=== PATIENT | female | born 1940 | race Caucasian/White ===

== ENCOUNTER 2022-08-24 23:40 | Observation (INO) | payer BC, SELFPAY ==
--- NOTE | ~2022-08-24 | MR_ITS ---
EXAMINATION: MRI OF THE BRAIN WITHOUT CONTRAST CLINICAL INFORMATION: CVA. COMPARISON: CTA of the head and neck earlier 08/25/2022. TECHNIQUE: MRI of the brain was obtained using routine sequences without contrast. FINDINGS: No diffusion abnormalities are identified to suggest an acute or subacute infarct. No mass effect or midline shift is seen. The ventricles and sulci are slightly commensurately prominent, consistent with diffuse volume loss. There are a few scattered foci of hyperintense T2 and FLAIR signal in the periventricular and subcortical white matter, most consistent with chronic microvascular ischemic changes. There appears to be a small area of gliosis in the left temporo-occipital region. There is a prominent perivascular space in the right temporal lobe. No extra-axial fluid collections are seen. The brainstem and cerebellum are normal. No pathologic magnetic susceptibility artifact is identified on the gradient refocused acquisition. The craniovertebral junction, marrow signal, and midline structures are normal. The major intracranial flow-voids at the level of the [place] are preserved. The dural venous sinus flow-voids are maintained. There is relatively extensive accessory parotid tissue bilaterally, right greater than left. 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 There have been bilateral lens extractions. There is trace fluid at the left mastoid tip. There is mild mucoperiosteal thickening in the ethmoid sinuses bilaterally. MR/MR head/brain wo con IMPRESSION: 1. There are no acute bleeds or territorial infarcts. No masses are demonstrated. 2. There are chronic microvascular ischemic changes and there is diffuse volume loss.
--- NOTE | ~2022-08-24 | CT_ITS ---
EXAMINATION: CTA OF THE HEAD/NECK CLINICAL INFORMATION: Left arm weakness COMPARISON: None. TECHNIQUE: A routine non contrast head CT was performed followed by a 70 mL bolus of Omnipaque 350. Subsequent multidetector helical imaging was performed of the head and neck. Delayed post contrast imaging was also performed through the head. Multiplanar reformats and MIP were also obtained. Internal carotid artery stenoses are assessed in accordance with NASCET criteria unless otherwise indicated. This CT examination was performed using dose optimization techniques as appropriate, variously including the following: *Automated exposure control *Adjustment of mA and/or kV according to patient size (this includes techniques or standardized protocols for targeted exams where dose is matched to indication/reason for exam; i.e. extremities or head) *Use of iterative reconstruction technique DLP: 2261 mGy-cm. FINDINGS: CT HEAD: There is no evidence of acute intracranial hemorrhage or territorial infarction. No abnormal mass effect or midline shift is seen. Avelar to white matter differentiation is well preserved. No extra-axial fluid collections are identified. No suspicious leptomeningeal or parenchymal enhancement on the post-contrast images. No hydrocephalus. Proportional prominence of the ventricles and sulcal spaces is consistent with mild volume loss. Patchy periventricular and deep white matter hypoattenuation is consistent with mild small vessel ischemic changes. The osseous structures and soft tissues are normal. The mastoid air cells and visualized portions of the paranasal sinuses are well aerated. CTA NECK: The aortic arch is of normal caliber and the origins of the great vessels are patent without evidence of significant stenosis. The cervical portion of the vertebral arteries are patent bilaterally. No luminal irregularities in the common carotid arteries and the carotid bifurcations are patent bilaterally. The cervical portion of the internal carotid arteries are of normal caliber. The laryngeal structures and pharyngeal mucosal spaces are unremarkable. The oral cavity appears normal. The parotid and submandibular glands are normal. No pathologically enlarged lymph nodes. The thyroid gland is unremarkable. Mild pleural thickening at the lung apices with calcification. No pneumothorax. Spinal alignment is maintained. Mild cervical spondylosis is noted. CTA HEAD: The intradural portion of the vertebral arteries are of normal caliber. The basilar, superior cerebellar, and posterior communicating arteries are patent. The posterior, middle, and anterior cerebral arteries are of normal caliber without evidence of significant luminal irregularity. No definite intracranial aneurysms. CT/CT angio head neck IMPRESSION: 1. No acute intracranial finding. 2. No large vessel occlusion or flow-limiting stenosis.
[2022-08-24 23:41] VITALS: BP 200/71; PULSE 84; RESP 18; TEMP 36.4; O2SAT 98; BMI 32.3
--- NOTE | 2022-08-24 23:46 | ECG_ITS ---
Test Reason : ?STROKE Blood Pressure : / mmHG Vent. Rate : 078 BPM Atrial Rate : 078 BPM P-R Int : 204 ms QRS Dur : 088 ms QT Int : 356 ms P-R-T Axes : 060 -03 068 degrees QTc Int : 405 ms Normal sinus rhythm Normal ECG No previous ECGs available Referred By: Generic ED Physician Electronically Signed By:Oswaldo Reynoso
[2022-08-25 00:09] VITALS: BP 176/82; PULSE 74; RESP 18; TEMP 36.9; O2SAT 96
[2022-08-25 00:15] LABS: MANUAL DIFF FLAG NO
[2022-08-25 00:17] LABS: Basophils Absolute Auto 0.1 X10*3/uL (0.0-0.2); Basophils Percent Auto 0.8 % (0-2); Eosinophils Absolute Auto 0.2 X10*3/uL (0.0-0.4); Eosinophils Percent Auto 2.4 % (0-4); Hematocrit 35.4 % (37.0-47.0); Hemoglobin 11.3 g/dl (12.0-16.0); Imm Gran Abs Auto 0.02 X10*3/uL (0.00-0.03); Imm Gran Pct Auto 0.3 % (0.0-0.4); Lymphocytes Absolute Auto 3.1 X10*3/uL (1.2-4.9); Lymphocytes Percent Auto 39.3 % (20-40); Mean Corpuscular HGB Conc 31.9 g/dl (31.0-35.0); Mean Platelet Volume 8.8 fL (9.4-12.3); Monocytes Absolute Auto 0.7 X10*3/uL (0.1-1.2); Monocytes Percent Auto 8.2 % (2-11); Neutrophils Absolute Auto 3.9 x10*3/uL (2.0-8.3); Platelet Count 269 X10*3/uL (160-400); Red Blood Count 3.89 X10*6/uL (4.20-5.50); Red Cell Distribution Width 13.2 % (11.0-16.0); White Blood Count 7.9 X10*3/uL (4.8-10.8)
--- NOTE | 2022-08-25 00:21 | ED.GENADULT ---
HPI - General Adult General Chief complaint: Weakness Stated complaint: Transient Ischemic Attack? Time Seen by Provider: 08/25/22 00:01 Source: patient and RN notes reviewed Mode of arrival: ambulatory Limitations: no limitations History of Present Illness HPI narrative: 82-year-old female with past medical history significant for diabetes, hypertension presents for evaluation of left arm weakness. She states that she was watching TV around 10:15 p.m. about 2 hours prior to arrival She reported that her left arm felt ?heavy with some numbness. 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 This episode lasted about 5 minutes before resolving completely on its own She denies any associated symptoms including headache, dizziness, blurry vision, difficulty speaking, chest pain, shortness of breath Patient denies any previous episodes of similar symptoms Related Data Home Medications Medication Instructions Recorded Confirmed Claritin 10 mg PO allergies 08/25/22 Vitamin D (with calcium) PO 08/25/22 atorvastatin 10 mg tablet 5 mg PO DAILY 08/25/22 08/25/22 insulin glargine 100 unit/mL (3 35 unit subcut DAILY 08/25/22 08/25/22 mL) subcutaneous pen (Basaglar KwikPen U-100 Insulin) lisinopril 10 mg tablet 10 mg PO DAILY 08/25/22 08/25/22 vitamin B complex PO 08/25/22 Allergies Allergy/AdvReac Type Severity Reaction Status Date / Time No Known Allergies Allergy Verified 08/25/22 00:13 Review of Systems Constitutional: Constitutional: Reports as per HPI, Denies chills, Denies fatigue, Denies fever(s) and Denies headache(s) ENT: Denies headache(s) Cardiovascular: Cardiovascular: Denies chest pain and Denies dyspnea Respiratory: Respiratory: Denies cough and Denies dyspnea Gastrointestinal: Gastrointestinal: Denies abdominal pain, Denies constipation and Denies vomiting Genitourinary: Genitourinary: Denies dysuria Neurologic: Denies headache(s) and Reports focal weakness Endocrine: Endocrine: Denies fatigue PMFSH Social History Social History Alcohol intake: never Smoked in Last 30 Days: No Use of substances other than those prescribed or required for medical reasons: No Advance Directives: No Advance Directives Information Provided: Yes Physical Exam ED Vital Signs: Vital Signs - 24 hr 08/24/22 23:41 08/25/22 00:09 08/25/22 01:38 Temperature 97.5 F 98.4 F Pulse Rate 84 74 77 Respiratory Rate 18 18 20 Blood Pressure 200/71 H 176/82 H 150/69 H Pulse Oximetry 98 96 96 Oxygen Delivery Method Room Air Room Air Room Air BMI result Body Mass Index 32.3 Const General: healthy appearing, comfortable, no acute distress, alert and awake Nutritional Appearance: well nourished Orientation/consciousness: patient oriented x3 HENMT Head: Yes normocephalic and Yes atraumatic Throat: Yes posterior oropharynx normal Eyes Eyelids: Yes eyelids normal Conjunctivae: conjunctivae normal Sclerae: sclerae normal Corneas: corneas normal Pupils: Equal, round and reactive pupils present EOM: EOMs intact bilaterally Neck Neck: Yes full ROM Resp Effort & Inspection: normal respiratory effort, able to speak in complete sentences, no audible wheezes and not labored Auscultation: clear to auscultation bilaterally Cardio Rate: regular rate Rhythm: regular rhythm GI Inspection: No distended Palpation (GI): Soft to palpation, not firm, nontender, no guarding and not rigid Auscultation: normoactive bowel sounds Skin General skin exam: no rashes or lesions noted and elasticity normal Neuro General: patient oriented x3 Cranial nerves: Yes CN's II-XII intact bilaterally, Yes Equal, round and reactive pupils present and Yes Bilaterally intact EOM present Cognition (Neuro): normal cognition Motor exam (neuro): 5/5 motor strength present throughout, pronator drift and No no tremor noted Extrem Other: Moving all extremities well without any obvious deformities Medications Administered Discontinued Medications Generic Name Dose Route Start Last Admin Trade Name Freq PRN Reason Stop Dose Admin Iohexol 70 ml 08/25/22 01:48 08/25/22 01:49 Iohexol 350 Mg/Ml 100 Ml Infus..Btl IV 08/25/22 01:49 70 ml ONCE ONE Administration Medical Decision Making Medical Decision Making MDM Narrative: 82-year-old female who currently has an NIH stroke score of 0 presents for evaluation of left arm heaviness and weakness that last about 5 minutes. Concern for TIA versus atypical ACS presentation. Will get a CT scan of brain with angiography. EKG is normal sinus rhythm without evidence of ischemia. Labs pending. Will hold any aspirin until released have dry CT scan of the brain to rule out any kind of bleed. The patient is quite hypertensive to the 200/71 on arrival. However we will refrain from any antihypertensive medication long as the patient remains neurologically intact and again pending CT scan. Differential Diagnosis TIA Intracranial hemorrhage CVA ACS Weakness Anxiety Hypertensive urgency Lab Data 08/25/22 00:09 08/25/22 00:09 Labs: Lab Results 08/25/22 08/25/22 08/25/22 Range/Units 00:09 00:09 00:09 WBC 7.9 (4.8-10.8) X10*3/uL RBC 3.89 L (4.20-5.50) X10*6/uL Hgb 11.3 L (12.0-16.0) g/dl Hct 35.4 L (37.0-47.0) % MCV 91.0 (80.0-98.0) fL MCH 29.0 (27.0-33.0) pg MCHC 31.9 (31.0-35.0) g/dl RDW 13.2 (11.0-16.0) % Plt Count 269 (160-400) X10*3/uL MPV 8.8 L (9.4-12.3) fL Immature Gran % (Auto) 0.3 (0.0-0.4) % Neut % (Auto) 49.0 (45-73) % Lymph % (Auto) 39.3 (20-40) % [place] % (Auto) 8.2 (2-11) % Eos % (Auto) 2.4 (0-4) % Baso % (Auto) 0.8 (0-2) % Lymph # (Auto) 3.1 (1.2-4.9) X10*3/uL [place] # (Auto) 0.7 (0.1-1.2) X10*3/uL Eos # (Auto) 0.2 (0.0-0.4) X10*3/uL Baso # (Auto) 0.1 (0.0-0.2) X10*3/uL Abs Immat Gran (auto) 0.02 (0.00-0.03) X10*3/uL Absolute Neuts (auto) 3.9 (2.0-8.3) x10*3/uL Absolute Nucleated RBC 0.000 (0.0-0.012) X10*3/uL Nucleated RBC % (auto) 0.0 (0.0-0.2) /100WBC PT 10.1 (10.0-13.1) SEC Whole Blood PT (11.1-13.5) sec INR 0.9 (0.9-1.1) Whole Blood INR (0.9-1.1) APTT 34.1 (26.0-36.4) SEC Sodium 138 (135-145) mmol/L Potassium 4.4 (3.3-5.1) mmol/L Chloride 103 (96-108) mmol/L Carbon Dioxide 27 (22-29) mmol/L Anion Gap 12 (12-20) BUN 23 H (9-16) mg/dL Creatinine 1.50 H (0.5-1.4) mg/dL Estim Creat Clear Calc 32.2 Estimated GFR 33 POC Glucose (60-115) mg/dL Random Glucose 205 H (60-115) mg/dL Calcium 9.8 (8.4-10.2) mg/dL Total Creatine Kinase 74 (26-140) U/L Troponin I High Sens (<3.5-17.0) ng/L COVID-19 ([facility]) (Negative) COVID-19 Clin Com 08/25/22 08/25/22 08/25/22 Range/Units 00:09 00:17 00:17 WBC (4.8-10.8) X10*3/uL RBC (4.20-5.50) X10*6/uL Hgb (12.0-16.0) g/dl Hct (37.0-47.0) % MCV (80.0-98.0) fL MCH (27.0-33.0) pg MCHC (31.0-35.0) g/dl RDW (11.0-16.0) % Plt Count (160-400) X10*3/uL MPV (9.4-12.3) fL Immature Gran % (Auto) (0.0-0.4) % Neut % (Auto) (45-73) % Lymph % (Auto) (20-40) % [place] % (Auto) (2-11) % Eos % (Auto) (0-4) % Baso % (Auto) (0-2) % Lymph # (Auto) (1.2-4.9) X10*3/uL [place] # (Auto) (0.1-1.2) X10*3/uL Eos # (Auto) (0.0-0.4) X10*3/uL Baso # (Auto) (0.0-0.2) X10*3/uL Abs Immat Gran (auto) (0.00-0.03) X10*3/uL Absolute Neuts (auto) (2.0-8.3) x10*3/uL Absolute Nucleated RBC (0.0-0.012) X10*3/uL Nucleated RBC % (auto) (0.0-0.2) /100WBC PT (10.0-13.1) SEC Whole Blood PT 11.5 (11.1-13.5) sec INR (0.9-1.1) Whole Blood INR 1.0 (0.9-1.1) APTT (26.0-36.4) SEC Sodium (135-145) mmol/L Potassium (3.3-5.1) mmol/L Chloride (96-108) mmol/L Carbon Dioxide (22-29) mmol/L Anion Gap (12-20) BUN (9-16) mg/dL Creatinine (0.5-1.4) mg/dL Estim Creat Clear Calc Estimated GFR POC Glucose 194 H (60-115) mg/dL Random Glucose (60-115) mg/dL Calcium (8.4-10.2) mg/dL Total Creatine Kinase (26-140) U/L Troponin I High Sens < 2.7 (<3.5-17.0) ng/L COVID-19 ([facility]) (Negative) COVID-19 Clin Com 08/25/22 Range/Units 01:18 WBC (4.8-10.8) X10*3/uL RBC (4.20-5.50) X10*6/uL Hgb (12.0-16.0) g/dl Hct (37.0-47.0) % MCV (80.0-98.0) fL MCH (27.0-33.0) pg MCHC (31.0-35.0) g/dl RDW (11.0-16.0) % Plt Count (160-400) X10*3/uL MPV (9.4-12.3) fL Immature Gran % (Auto) (0.0-0.4) % Neut % (Auto) (45-73) % Lymph % (Auto) (20-40) % [place] % (Auto) (2-11) % Eos % (Auto) (0-4) % Baso % (Auto) (0-2) % Lymph # (Auto) (1.2-4.9) X10*3/uL [place] # (Auto) (0.1-1.2) X10*3/uL Eos # (Auto) (0.0-0.4) X10*3/uL Baso # (Auto) (0.0-0.2) X10*3/uL Abs Immat Gran (auto) (0.00-0.03) X10*3/uL Absolute Neuts (auto) (2.0-8.3) x10*3/uL Absolute Nucleated RBC (0.0-0.012) X10*3/uL Nucleated RBC % (auto) (0.0-0.2) /100WBC PT (10.0-13.1) SEC Whole Blood PT (11.1-13.5) sec INR (0.9-1.1) Whole Blood INR (0.9-1.1) APTT (26.0-36.4) SEC Sodium (135-145) mmol/L Potassium (3.3-5.1) mmol/L Chloride (96-108) mmol/L Carbon Dioxide (22-29) mmol/L Anion Gap (12-20) BUN (9-16) mg/dL Creatinine (0.5-1.4) mg/dL Estim Creat Clear Calc Estimated GFR POC Glucose (60-115) mg/dL Random Glucose (60-115) mg/dL Calcium (8.4-10.2) mg/dL Total Creatine Kinase (26-140) U/L Troponin I High Sens (<3.5-17.0) ng/L COVID-19 ([facility]) Negative (Negative) COVID-19 Clin Com See Note Independent Interpretation I performed an independent interpretation of an: EKG (Sinus rhythm with a rate of 78 beats per minute. No ischemic changes) Discharge Plan Discharge Clinical Impression: Brain TIA Patient Disposition: Admitted As Inpatient Prescriptions: No Action atorvastatin 10 mg tablet 5 mg PO DAILY lisinopril 10 mg tablet 10 mg PO DAILY insulin glargine [Basaglar KwikPen U-100 Insulin] 100 unit/mL (3 mL) insulin pen 35 unit subcut DAILY Claritin 10 mg 10 mg PO Vitamin D (with calcium) PO vitamin B complex PO
[2022-08-25 00:23] LABS: INTERNATIONAL NORM RATIO 0.9 (0.9-1.1); Prothrombin Time 10.1 SEC (10.0-13.1)
[2022-08-25 00:26] LABS: Partial Thromboplastin Time 34.1 SEC (26.0-36.4)
[2022-08-25 00:30] LABS: Anion Gap 12 (12-20); Blood Urea Nitrogen 23 mg/dL (9-16); Calcium 9.8 mg/dL (8.4-10.2); Carbon Dioxide 27 mmol/L (22-29); Chloride 103 mmol/L (96-108); Creatinine Clr Calc Pharmacy 32.2; Estimated Glomerular Filt Rate 33; Glucose Random 205 mg/dL (60-115); Potassium 4.4 mmol/L (3.3-5.1); Sodium 138 mmol/L (135-145)
[2022-08-25 00:32] LABS: Prothrombin Time Whole Bld POC 11.5 sec (11.1-13.5)
[2022-08-25 00:34] LABS: Stroke Lab Use COMPLETE
--- NOTE | 2022-08-25 00:34 | PC.NURSE ---
Pt A&Ox4, ambulated from WR to room with steady gait, reports she was watching TV at approximately 2215 last night when all of the sudden she felt left arm heaviness lasting less then 5 mins, now resolved. Pt denies SOB, CP. Pt able to move all extremities equally, no am drift noted, symmetrical smile. IV line placed, blood work collected and sent to lab, Pt placed on bedside monitor, EKG obtained and reviewed by Dr. Andrews. Pt at CT scan.
[2022-08-25 00:35] LABS: Glucose, Whole Blood 194 mg/dL (60-115)
[2022-08-25 00:36] LABS: Troponin-I High Sensitivity < 2.7 ng/L (<3.5-17.0)
[2022-08-25 01:38] VITALS: BP 150/69; PULSE 77; RESP 20; O2SAT 96
[2022-08-25] MEDS: iohexoL 350 MG/ML 100 ML INFUS..BTL 70 ML IV (01:49)
[2022-08-25 02:03] LABS: COVID-19 Test Negative (Negative); IDNOW Serial# 08D9AD1C
[2022-08-25] MEDS: Aspirin 325 MG TABLET PO (02:14)
--- NOTE | 2022-08-25 02:20 | PM.IMHP ---
History of Present Illness Date of Service: 08/25/22 Chief Complaint: Arm weakness This is 82-year-old female with pertinent history of essential hypertension, mixed hyperlipidemia and insulin-dependent diabetes mellitus presents to the emergency department for left upper extremity weakness. Patient states while she was watching television at 22:30, she had sudden onset of left hand heaviness and numbness. Patient states she was unable to make a fist with her left upper extremity. It lasted for about 5 minutes and then resolved. No weakness in right upper extremity or lower extremities. No facial droop. No blurring of vision, jerking movement of extremities. No loss of consciousness. No similar episodes in the past. Patient denies fever, chills, nausea, vomiting, chest discomfort, palpitations, shortness of breath, changes in urinary or bowel habits. No cardiac rhythm abnormalities in the past In the emergency department, imaging without acute abnormality Review of Systems Constitutional: Constitutional: Reports no additional constitutional complaints Cardiovascular: Cardiovascular: Reports no additional cardiovascular complaints Respiratory: Respiratory: Reports no additional respiratory complaints Gastrointestinal: Gastrointestinal: Reports no additional gastrointestinal complaints Genitourinary: Genitourinary: Reports no additional female genitourinary complaints Neurologic: Reports focal weakness [facility] Medical History Essential hypertension Insulin dependent type 2 diabetes mellitus Mixed hyperlipidemia Pertinent family history: No family history of early CAD Social History Alcohol intake: never Patient Tobacco Use Status: Never used Tobacco Smoked in Last 30 Days: No Use of substances other than those prescribed or required for medical reasons: No Advance Directives: No Advance Directives Information Provided: Yes Nutrition Risks: No Nutritional Risk Meds Allergies Allergy/AdvReac Type Severity Reaction Status Date / Time No Known Allergies Allergy Verified 08/25/22 00:13 Active Medications: Current Medications Pharmacy Consult (Consult Rx Perform Med Rec) 1 each MISCELLANE ONCE PRN PRN Reason: Consult order Home Medications Medication Instructions Recorded Confirmed Last Taken Type Claritin 10 mg PO allergies 08/25/22 Unknown History Vitamin D (with calcium) PO 08/25/22 Unknown History atorvastatin 10 mg tablet 5 mg PO DAILY 08/25/22 08/25/22 Unknown History insulin glargine 100 unit/mL (3 35 unit subcut DAILY 08/25/22 08/25/22 Unknown History mL) subcutaneous pen (Basaglar KwikPen U-100 Insulin) lisinopril 10 mg tablet 10 mg PO DAILY 08/25/22 08/25/22 Unknown History vitamin B complex PO 08/25/22 Unknown History Physical Exam Vital Signs and Narrative: Vital Signs: Last Vital Signs Temp 98.4 F 08/25/22 00:09 Pulse 77 08/25/22 01:38 Resp 20 08/25/22 01:38 BP 150/69 H 08/25/22 01:38 Pulse Ox 96 08/25/22 01:38 O2 Del Method Room Air 08/25/22 01:38 BMI result Body Mass Index 32.3 Middle-aged female lying in bed in no distress Neck supple, no JVD Regular rate and rhythm, S1-S2 heard Regular breath sounds bilaterally, no wheezing or crackles appreciated Abdomen soft nontender, no guarding, no rigidity Patient is awake, alert and oriented to self, place, time and person ; strength 5/5 in bilateral upper and lower extremities, tongue and uvula midline, no facial droop, no nystagmus, no pronator drift Psych: Normal mood No pedal edema Results Labs 08/25/22 00:09 08/25/22 00:09 Labs: Laboratory Results - last 24 hr 08/25/22 08/25/22 08/25/22 00:09 00:09 00:09 MCV 91.0 MCH 29.0 MCHC 31.9 RDW 13.2 Plt Count 269 MPV 8.8 L Immature Gran % (Auto) 0.3 Neut % (Auto) 49.0 Lymph % (Auto) 39.3 [place] % (Auto) 8.2 Eos % (Auto) 2.4 Baso % (Auto) 0.8 Lymph # (Auto) 3.1 [place] # (Auto) 0.7 Eos # (Auto) 0.2 Baso # (Auto) 0.1 Abs Immat Gran (auto) 0.02 Absolute Neuts (auto) 3.9 Absolute Nucleated RBC 0.000 Nucleated RBC % (auto) 0.0 PT 10.1 Whole Blood PT INR 0.9 Whole Blood INR APTT 34.1 Anion Gap 12 Estim Creat Clear Calc 32.2 Estimated GFR 33 POC Glucose Random Glucose 205 H Calcium 9.8 Total Creatine Kinase 74 Troponin I High Sens COVID-19 ([facility]) COVID-19 Clin Com 08/25/22 08/25/22 08/25/22 00:09 00:17 00:17 MCV MCH MCHC RDW Plt Count MPV Immature Gran % (Auto) Neut % (Auto) Lymph % (Auto) [place] % (Auto) Eos % (Auto) Baso % (Auto) Lymph # (Auto) [place] # (Auto) Eos # (Auto) Baso # (Auto) Abs Immat Gran (auto) Absolute Neuts (auto) Absolute Nucleated RBC Nucleated RBC % (auto) PT Whole Blood PT 11.5 INR Whole Blood INR 1.0 APTT Anion Gap Estim Creat Clear Calc Estimated GFR POC Glucose 194 H Random Glucose Calcium Total Creatine Kinase Troponin I High Sens < 2.7 COVID-19 ([facility]) COVID-19 Clin Com 08/25/22 01:18 MCV MCH MCHC RDW Plt Count MPV Immature Gran % (Auto) Neut % (Auto) Lymph % (Auto) [place] % (Auto) Eos % (Auto) Baso % (Auto) Lymph # (Auto) [place] # (Auto) Eos # (Auto) Baso # (Auto) Abs Immat Gran (auto) Absolute Neuts (auto) Absolute Nucleated RBC Nucleated RBC % (auto) PT Whole Blood PT INR Whole Blood INR APTT Anion Gap Estim Creat Clear Calc Estimated GFR POC Glucose Random Glucose Calcium Total Creatine Kinase Troponin I High Sens COVID-19 ([facility]) Negative COVID-19 Clin Com See Note Imaging Radiologist's Impressions: Impressions Head/Neck CTA 08/25/22 01:00 IMPRESSION: 1. No acute intracranial finding. 2. No large vessel occlusion or flow-limiting stenosis. Assessment and Plan (1) Brain TIA: Status: Acute Plan This is 82-year-old female with pertinent history of essential hypertension, mixed hyperlipidemia and insulin-dependent diabetes mellitus presents to the emergency department for left upper extremity weakness. #. Transient arm weakness: Concerning for TIA. ABCD2 score 5. 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 Obtaining MRI of the brain and consulting Neurology. Patient received antiplatelet therapy and high-intensity statin. Obtaining A1c, echo and lipid panel. #. Insulin-dependent diabetes mellitus with hyperglycemia: Initiating basal plus regimen #. Essential hypertension: On lisinopril #. Elevated creatinine: Unclear baseline. ARY versus CKD. Monitor urine output and creatinine. Avoid nephrotoxins Med rec pending DVT prophylaxis: Lovenox 40 mg daily Full code Cardiac diet Time Spent With Patient Time: Total time managing care of this patient today ____ minutes. Quality Stroke Does the patient have a stroke diagnosis?: No VTE Prior VTE?: No VTE Risk Level:: Medical - moderate - high VTE Device Contraindication: Treatment Not Indicated VTE Drug Contraindication: N/A - Med Ordered
[2022-08-25 02:53] LABS: MANUAL DIFF FLAG NO
[2022-08-25 02:55] LABS: Basophils Absolute Auto 0.1 X10*3/uL (0.0-0.2); Basophils Percent Auto 0.7 % (0-2); Eosinophils Absolute Auto 0.2 X10*3/uL (0.0-0.4); Eosinophils Percent Auto 2.2 % (0-4); Hematocrit 34.4 % (37.0-47.0); Hemoglobin 11.2 g/dl (12.0-16.0); Imm Gran Abs Auto 0.02 X10*3/uL (0.00-0.03); Imm Gran Pct Auto 0.3 % (0.0-0.4); Lymphocytes Absolute Auto 2.4 X10*3/uL (1.2-4.9); Lymphocytes Percent Auto 33.1 % (20-40); Mean Corpuscular HGB Conc 32.6 g/dl (31.0-35.0); Mean Corpuscular Hemoglobin 29.3 pg (27.0-33.0); Mean Corpuscular Volume 90.1 fL (80.0-98.0); Mean Platelet Volume 8.9 fL (9.4-12.3); Monocytes Absolute Auto 0.6 X10*3/uL (0.1-1.2); Monocytes Percent Auto 8.5 % (2-11); Neutrophils Percent Auto 55.2 % (45-73); Platelet Count 232 X10*3/uL (160-400); Red Blood Count 3.82 X10*6/uL (4.20-5.50); Red Cell Distribution Width 13.1 % (11.0-16.0); White Blood Count 7.2 X10*3/uL (4.8-10.8)
--- NOTE | 2022-08-25 03:09 | PC.NURSE ---
Pt passed bedside nurse swallow eval.
[2022-08-25 03:35] LABS: Anion Gap 14 (12-20); Blood Urea Nitrogen 23 mg/dL (9-16); Calcium 9.3 mg/dL (8.4-10.2); Carbon Dioxide 22 mmol/L (22-29); Chloride 106 mmol/L (96-108); Estimated Glomerular Filt Rate 38; Glucose Random 151 mg/dL (60-115); Potassium 4.7 mmol/L (3.3-5.1); Sodium 137 mmol/L (135-145)
[2022-08-25 03:37] LABS: Estimated Average Glucose 177 mg/dL; Hemoglobin A1c % 7.8 %
[2022-08-25] MEDS: Melatonin 3 MG TABLET 6 MG PO (03:51)
--- NOTE | 2022-08-25 04:29 | PC.NURSE ---
RN to RN report given to Janice. Pt will be transported to room 477, Pt aware of plan.
[2022-08-25 05:08] VITALS: BP 163/69; PULSE 74; RESP 20; TEMP 36.6; O2SAT 96
[2022-08-25 07:32] VITALS: BP 127/60; PULSE 69; RESP 16; TEMP 36.2; O2SAT 94
[2022-08-25 07:50] LABS: Glucose, Whole Blood 175 mg/dL (60-115)
[2022-08-25] MEDS: Insulin Lispro 100 UNIT/ML 3 ML VIAL SUBCUT ×2 (08:29→12:31)
[2022-08-25] MEDS: Enoxaparin Sodium 40 MG/0.4 ML SYRINGE SUBCUT (08:30)
[2022-08-25] MEDS: 0.9 % Sodium Chloride Flush 3 ML SYRINGE IVFLUSH (08:30)
[2022-08-25 11:17] LABS: Glucose, Whole Blood 151 mg/dL (60-115)
[2022-08-25 11:41] VITALS: BP 134/62; PULSE 80; RESP 16; TEMP 36.4; O2SAT 96
--- NOTE | 2022-08-25 12:32 | PM.NEUROCN ---
History of Present Illness Data of Consult Service Date: 08/25/22 Primary Care Provider: Janina Welch MD HPI Reason for consult: Stroke 82 years old woman with diabetes and hypertension in usual state of health when she was sitting last night and suddenly developed left arm weakness. She said it was like her arm was 50 lb heavy. She could not use or move her arm or hand for about 5 minutes. There was no associated confusion pain numbness tingling leg weakness or numbness or facial weakness or numbness or speech or language difficulty. There was no headache. She never had such symptoms in the past. Review of Systems Review of Systems: No cold or flu-like illness PMFSH Past Medical History Medical History Essential hypertension Insulin dependent type 2 diabetes mellitus Mixed hyperlipidemia Social History Social History Alcohol intake: never Patient Tobacco Use Status: Never used Tobacco Smoked in Last 30 Days: No Use of substances other than those prescribed or required for medical reasons: No Advance Directives: No Advance Directives Information Provided: Yes Nutrition Risks: No Nutritional Risk Meds Allergies Allergy/AdvReac Type Severity Reaction Status Date / Time No Known Allergies Allergy Verified 08/25/22 00:13 Active Medications: Current Medications Acetaminophen (Acetaminophen 325 Mg Tablet) 650 mg PO Q6H PRN PRN Reason: Pain, Mild (Pain Scale 1-3) Enoxaparin Sodium (Enoxaparin Sodium 40 Mg/0.4 Ml Syringe) 40 mg SUBCUT Q24H [facility] Last Admin: 08/25/22 08:30 Dose: 40 mg Glucose (Glucose Gel 15 Gm Gel..Gram.) 15 gm PO Q15M PRN; Protocol PRN Reason: per Hypoglycemia Standing Ord. Dextrose (D10) 250 mls @ 750 mls/hr IV Q15M PRN; Protocol PRN Reason: per Hypoglycemia Standing Ord. Insulin Human Lispro (Insulin Lispro 100 Unit/Ml 3 Ml Vial) 0 unit SUBCUT QIDACHS [facility]; Protocol Last Admin: 08/25/22 12:31 Dose: 2 unit Melatonin (Melatonin 3 Mg Tablet) 6 mg PO BEDTIME PRN PRN Reason: Insomnia Last Admin: 08/25/22 03:51 Dose: 6 mg Ondansetron HCl (Ondansetron Hcl 4 Mg/2 Ml Vial) 4 mg IVPUSH Q8H PRN PRN Reason: Nausea and Vomiting Pharmacy Consult (Consult Rx Perform Med Rec) 1 each MISCELLANE ONCE PRN PRN Reason: Consult order Sodium Chloride (0.9 % Sodium Chloride Flush 3 Ml Syringe) 3 ml IVFLUSH QSHIFT [facility] Last Admin: 08/25/22 08:30 Dose: 3 ml Home Medications Medication Instructions Recorded Confirmed Last Taken Type Claritin 10 mg PO DAILY allergies 08/25/22 08/25/22 Unknown History Vitamin D (with calcium) 1 tab PO DAILY 08/25/22 08/25/22 Unknown History atorvastatin 10 mg tablet 5 mg PO DAILY 08/25/22 08/25/22 Unknown History insulin glargine 100 unit/mL (3 24 unit subcut BEDTIME 08/25/22 08/25/22 Unknown History mL) subcutaneous pen (Basaglar KwikPen U-100 Insulin) lisinopril 10 mg tablet 10 mg PO DAILY 08/25/22 08/25/22 Unknown History metformin 1,000 mg tablet 1,000 mg PO BID 08/25/22 08/25/22 Unknown History vitamin B complex 1 tab PO DAILY 08/25/22 08/25/22 Unknown History Physical Exam Vital Signs: Vital Signs: Last Vital Signs Temp 97.5 F 08/25/22 11:41 Pulse 80 08/25/22 11:41 Resp 16 08/25/22 11:41 BP 134/62 08/25/22 11:41 Pulse Ox 96 08/25/22 11:41 O2 Del Method Room Air 08/25/22 11:41 BMI result Body Mass Index 32.3 Neuro: Other: She is alert and awake with normal spontaneity of speech fluency comprehension and affect. Face is symmetrical. Visual loomis are full. Pupils are about 3 mm were and round. Extraocular muscles are intact. There is mild left-sided pronator drift. Deep tendon reflexes are trace to absent with flexor plantars. Speech is normal. Results Labs 08/25/22 02:46 08/25/22 02:46 Labs: Short CBC 08/25/22 08/25/22 Range/Units 00:09 02:46 WBC 7.9 7.2 (4.8-10.8) X10*3/uL Hgb 11.3 L 11.2 L (12.0-16.0) g/dl Hct 35.4 L 34.4 L (37.0-47.0) % Plt Count 269 232 (160-400) X10*3/uL BMP 08/25/22 08/25/22 00:09 02:46 Sodium 138 137 Potassium 4.4 4.7 Chloride 103 106 Carbon Dioxide 27 22 BUN 23 H 23 H Creatinine 1.50 H 1.34 Calcium 9.8 9.3 Cardiac Enzymes 08/25/22 Range/Units 00:09 Total Creatine Kinase 74 (26-140) U/L Noncontrast head CT revealed mild cerebellar and cerebral atrophy. MRI of brain revealed mild chronic microvascular ischemic changes with no obvious acute lesion. CTA did not reveal any large vessel disease. EKG reveals sinus rhythm. Assessment and Plan (1) Cerebral infarction: Status: Acute 82 years old woman with hypertension and diabetes came with few minutes of left arm weakness without any other symptom. Examination revealed mild left pronator drift. Workup was mostly negative except revealing chronic microvascular ischemic changes of brain and mild atrophy. Most likely explanation is a small cerebral infarct not even visible on MRI of brain as she does have mild left pronator drift. This type of infarcts are usually embolic in nature. I would recommend appropriate cardiac evaluation and in the meantime starting her on anti-platelet agent statin and advising good blood pressure and diabetes control. She wanted to leave as soon as possible and her workup such as echocardiogram and Holter can be arranged as an outpatient. Time Spent With Patient Time: Total time managing care of this patient today ____ minutes. Procedures Date of Service Date of Service: 08/25/22
--- NOTE | 2022-08-25 14:24 | P.DS_ITS ---
DS: Providers Provider Date of Service: 08/25/22 Date of admission: 08/25/22 02:18 Primary care physician: Janina Welch MD Consults: 08/25/22 02:18 Consult to Neurology Routine Consulting Provider: [facility] Reason for consultation: TIA vs CVA DS: Diagnosis Discharge Diagnosis (1) Cerebral infarction: Status: Acute DS: Summary Hospital Course Hospital Course: Chief Complaint: Arm weakness This is 82-year-old female with pertinent history of essential hypertension, mixed hyperlipidemia and insulin-dependent diabetes mellitus presents to the emergency department for left upper extremity weakness.? Patient states while she was watching television at 22:30, she had sudden onset of left hand heaviness and numbness.? Patient states she was unable to make a fist with her left upper extremity.? It lasted for about 5 minutes and then resolved.? No weakness in right upper extremity or lower extremities.? No facial droop.? No blurring of vision, jerking movement of extremities.? No loss of consciousness.? No similar episodes in the past.? Patient denies fever, chills, nausea, vomiting, chest discomfort, palpitations, shortness of breath, changes in urinary or bowel habits.? No cardiac rhythm abnormalities in the past In the emergency department, imaging without acute abnormality Hospital course:Patient was admitted for TIA and observed with serial neuro exams and did not have any further episode. CT did not show acute stroke. She was evaluated by Dr. Ac and e recommends heladio, and to have outpatient echo and holter monitoring. I have discussed this with the patient and he will discuss this with her doctor and to have these arranged Time Spent with Patient Time attestation: Total time managing care of this patient today ____ minutes. Discharge coordination time: Greater than 30 minutes Quality: Safe Use of Opioids Does Pt have an Active Cancer Diagnosis on the Problem List?: No Quality: Stroke Does the patient have a stroke diagnosis?: No Physical Exam Vital Signs: Vital Signs: Last Vital Signs Temp 97.5 F 08/25/22 11:41 Pulse 80 08/25/22 11:41 Resp 16 08/25/22 11:41 BP 134/62 08/25/22 11:41 Pulse Ox 96 08/25/22 11:41 O2 Del Method Room Air 08/25/22 11:41 BMI result Body Mass Index 32.3 Const: Other: General: AO X 3, no acute distress Resp: CTA bilateral CVS: S1,S2,RRR GI: +BS, NT, no distention Skin: No rash Neuro: motor grossly intact Psych: appropriate affect DS: Data Data Completed and Pending Labs on day of discharge: Laboratory Results - last 24 hr 08/25/22 08/25/22 08/25/22 00:09 00:09 00:09 WBC 7.9 RBC 3.89 L Hgb 11.3 L Hct 35.4 L MCV 91.0 MCH 29.0 MCHC 31.9 RDW 13.2 Plt Count 269 MPV 8.8 L Immature Gran % (Auto) 0.3 Neut % (Auto) 49.0 Lymph % (Auto) 39.3 [place] % (Auto) 8.2 Eos % (Auto) 2.4 Baso % (Auto) 0.8 Lymph # (Auto) 3.1 [place] # (Auto) 0.7 Eos # (Auto) 0.2 Baso # (Auto) 0.1 Abs Immat Gran (auto) 0.02 Absolute Neuts (auto) 3.9 Absolute Nucleated RBC 0.000 Nucleated RBC % (auto) 0.0 PT 10.1 Whole Blood PT INR 0.9 Whole Blood INR APTT 34.1 Sodium 138 Potassium 4.4 Chloride 103 Carbon Dioxide 27 Anion Gap 12 BUN 23 H Creatinine 1.50 H Estim Creat Clear Calc 32.2 Estimated GFR 33 POC Glucose Random Glucose 205 H Estimat Average Glucose Hemoglobin A1c % Calcium 9.8 Total Creatine Kinase 74 Troponin I High Sens COVID-19 ([facility]) COVID-19 Clin Com 08/25/22 08/25/22 08/25/22 00:09 00:09 00:17 WBC RBC Hgb Hct MCV MCH MCHC RDW Plt Count MPV Immature Gran % (Auto) Neut % (Auto) Lymph % (Auto) [place] % (Auto) Eos % (Auto) Baso % (Auto) Lymph # (Auto) [place] # (Auto) Eos # (Auto) Baso # (Auto) Abs Immat Gran (auto) Absolute Neuts (auto) Absolute Nucleated RBC Nucleated RBC % (auto) PT Whole Blood PT 11.5 INR Whole Blood INR 1.0 APTT Sodium Potassium Chloride Carbon Dioxide Anion Gap BUN Creatinine Estim Creat Clear Calc Estimated GFR POC Glucose Random Glucose Estimat Average Glucose 177 Hemoglobin A1c % 7.8 Calcium Total Creatine Kinase Troponin I High Sens < 2.7 COVID-19 ([facility]) COVID-19 [employer] Com 08/25/22 08/25/22 08/25/22 00:17 01:18 02:46 WBC 7.2 RBC 3.82 L Hgb 11.2 L Hct 34.4 L MCV 90.1 MCH 29.3 MCHC 32.6 RDW 13.1 Plt Count 232 MPV 8.9 L Immature Gran % (Auto) 0.3 Neut % (Auto) 55.2 Lymph % (Auto) 33.1 [place] % (Auto) 8.5 Eos % (Auto) 2.2 Baso % (Auto) 0.7 Lymph # (Auto) 2.4 [place] # (Auto) 0.6 Eos # (Auto) 0.2 Baso # (Auto) 0.1 Abs Immat Gran (auto) 0.02 Absolute Neuts (auto) 4.0 Absolute Nucleated RBC 0.000 Nucleated RBC % (auto) 0.0 PT Whole Blood PT INR Whole Blood INR APTT Sodium Potassium Chloride Carbon Dioxide Anion Gap BUN Creatinine Estim Creat Clear Calc Estimated GFR POC Glucose 194 H Random Glucose Estimat Average Glucose Hemoglobin A1c % Calcium Total Creatine Kinase Troponin I High Sens COVID-19 ([facility]) Negative COVID-19 Cinnamon See Note 08/25/22 08/25/22 08/25/22 02:46 07:32 11:05 WBC RBC Hgb Hct MCV MCH MCHC RDW Plt Count MPV Immature Gran % (Auto) Neut % (Auto) Lymph % (Auto) [place] % (Auto) Eos % (Auto) Baso % (Auto) Lymph # (Auto) [place] # (Auto) Eos # (Auto) Baso # (Auto) Abs Immat Gran (auto) Absolute Neuts (auto) Absolute Nucleated RBC Nucleated RBC % (auto) PT Whole Blood PT INR Whole Blood INR APTT Sodium 137 Potassium 4.7 Chloride 106 Carbon Dioxide 22 Anion Gap 14 BUN 23 H Creatinine 1.34 Estim Creat Clear Calc 36.0 Estimated GFR 38 POC Glucose 175 H 151 H Random Glucose 151 H Estimat Average Glucose Hemoglobin A1c % Calcium 9.3 Total Creatine Kinase Troponin I High Sens COVID-19 ([facility]) COVID-19 Clin Com Discharge Plan Discharge Anticipated Discharge Date/Time: 08/25/22 13:53 Patient Disposition: Home, Self-Care Discharge Diagnosis: TIA Referrals: Janina Welch MD [Primary Care Provider] - 1 Week Discharge Medications: New aspirin 81 mg capsule 81 mg PO DAILY Qty: 30 0RF Continued atorvastatin 10 mg tablet 5 mg PO DAILY lisinopril 10 mg tablet 10 mg PO DAILY insulin glargine [Basaglar KwikPen U-100 Insulin] 100 unit/mL (3 mL) insulin pen 24 unit subcut BEDTIME Claritin 10 mg 10 mg PO DAILY Vitamin D (with calcium) 1 tab PO DAILY vitamin B complex 1 tab PO DAILY metformin 1,000 mg tablet 1,000 mg PO BID Discharge Orders: Discharge Order (Routine); Ordered 08/25/22 Ordered By: Juan Murrell Diet: Advance to usual diet Activity on Discharge: As tolerated Stand Alone Forms: Patient Portal Discharge page Care Plan Goals: Stroke prevention Health Concerns: TIA Plan of Treatment: In addition to all your medications, take aspirin 81 mg daily (one baby aspirin daily) Ask your primary care provider to arrange for you to have an echocardiogram and to have a holter monitor If your symptoms return, call 911 Assessment: as above
--- NOTE | 2022-08-25 14:36 | MHC.CM.PN ---
MD D/C order prior to CM interview. MD order home, self care. CM acknowledge.
== END 2022-08-25 16:13 | disposition home or self-care (01) ==
LOC: HO.ED 08-25 02:07 → HO.EDOVER 08-25 02:23 → HO.IMC 08-25 04:21
PROVIDERS: Physician Assistant; Admitting Provider Student in an Organized Health Care Education/Training Program; Emergency Provider Emergency Medicine; PCP Internal Medicine; Visit Provider Internal Medicine
DX: G45.9 Transient cerebral ischemic attack, unspecified (principal); I63.9 Cerebral infarction, unspecified; Z20.822 Contact with and (suspected) exposure to COVID-19; E11.9 Type 2 diabetes mellitus without complications; I10 Essential (primary) hypertension; Z79.4 Long term (current) use of insulin; Z79.899 Other long term (current) drug therapy; Z79.02 Long term (current) use of antithrombotics/antiplatelets
CPT/HCPCS: 36415; 70496; 70498; 70551; 80048; 82550; 82947; 83036; 84484; 85025; 85610; 85730; 87635; 93005; 96372; 99222; 99285; J1650; Q9967